=== PATIENT | male | born 1955 | race Caucasian/White ===

== ENCOUNTER 2016-08-22 11:28 | Observation (INO) | payer MEDICARE ==
--- NOTE | ~2016-08-22 | DS ---
Unit #: [id number] #: [id number] Patient: MEI GARCIA SR [id number] [address] [address] [id number] MR#: [id number] NAME: MEI GARCIA SR ROOM: [facility] Age: 61 Sex: M Admission Date: 08/22/2016 : 1955 Discharge Date: 08/23/2016 Attending Physician: Gabi Shankar M.D. Primary Care Physician: Burton Horan, Molding Sander DISCHARGE SUMMARY PRINCIPAL DIAGNOSES 1. Right lower lobe aspiration pneumonia. 2. Mild chronic obstructive pulmonary disease exacerbation. 3. History of tonsillar cancer, status post treatment and facial reconstruction. 4. Dysphagia, status post PEG tube placement. 5. Gastroesophageal reflux disease. CONSULTANTS None. PROCEDURES 1. Chest x-ray on August 22, 2016 with infiltrate or atelectasis of the right lung base. 2. CT angiogram of the chest on August 22, 2016, with no evidence of PE. A few patchy areas of ground glass opacity, consistent with a small amount of pneumonia in the right lower lobe. CLINICAL HISTORY/HOSPITAL COURSE Mr. Garcia is a very nice 61-year-old male who presented to the emergency department with coughing and wheezing. Please refer to H and P for further details. The patient has remained afebrile and hasn't had any new hypoxic. Chest x-ray revealed right lower lobe infiltrate. The patient was placed in observation for evaluation. The patient was placed on empiric azithromycin and cefepime. He has remained afebrile throughout hospitalization. He has not had any leukocytosis nor has he had any hypoxia. This morning, he states he feels quite a bit better and would like to be discharged. His sputum is growing both Gram-positive rods and Gram-positive cocci. He is at risk for healthcare-associated pneumonia; however, clinically he appears quite well. I am going to discharge him on Augmentin and will follow up sputum culture tomorrow. DISCHARGE CONDITION Stable. DISCHARGE STATUS Discharge to home. DISCHARGE MEDICATIONS 1. Gabapentin 300 mg t.i.d. per PEG tube. 2. Claritin 10 mg daily. 3. Isosource 1.5 tube feeds as he was doing at home. Unit #: [id number] #: [id number] Patient: MEI GARCIA SR 4. Lipitor 20 mg at bedtime. 5. Reglan 5 mg per G-tube four times daily. 6. Protonix per PEG daily. 7. Augmentin suspension, 125/31.25 per 5 mL. The patient will take 35 mL per PEG b.i.d. for another five days. DISCHARGE INSTRUCTIONS Patient will remain NPO and continue with tube feeds with water flushes as he was doing at home previously. He can increase his activity as tolerated. FOLLOWUP The patient will follow up with his primary care provider, Manju Horan, at [facility], [place] in two weeks. Dictated by... Gabi Shankar M.D. MOE/hasmukh TD: 08/23/2016 11:54 JOB #: [id number] DISCHARGE SUMMARY X Gabi Shankar MD X DISCHARGE SUMMARY
--- NOTE | ~2016-08-22 | EKG ---
PATIENT: MEI GARCIA UNIT #: [id number] Ventricular Rate: 83 BPM Atrial Rate: 83 BPM P-R Interval: 152 ms QRS Duration: 84 ms Q-T Interval: 358 ms QTC Calculation(Bezet): 420 ms P [place]: 27 degrees Calculated R [place]: 9 degrees Calculated T [place]: 32 degrees Diagnosis Line: Normal sinus rhythm Diagnosis Line: Normal ECG Diagnosis Line: No previous ECGs available Diagnosis Line: Confirmed by ROZINA JAIMES MD ([id number]) on 08/23/2016 Diagnosis Line: 5:39:20 PM INTERPRETING MD: THEODORE ALAS
--- NOTE | ~2016-08-22 | CR72 ---
[facility] A Service of [facility] RADIOLOGY TEXT RESULTS PATIENT: MEI GARCIA SR LOCATION: [facility] : 53 UNIT #: [id number] AGE: [address]: Werner Sky DO SEX: M ORDER DR: [id number] [facility] [address] [facility] [place], [place] [address] [id number] E MR#: [id number] Acc #: [id number] NAME: MEI GARCIA SR : 1955 SEX: M STUDY DATE/TIME: 08/22/2016 11:23 UNIT: [facility] ROOM: STUDY DESCRIPTION: CR Chest Single View Portable Attending Physician: Werner Sky D.O. Ordering Physician: Werner Sky D.O. Primary Care Physician: Burton Horan Aprn MEDICAL IMAGING REPORT This report is preliminary unless electronic signature is present EXAM AP portable chest 08/22/2016. HISTORY 61-year-old male in the ED complaining of 2-day history of cough, wheezing and shortness of air. TECHNIQUE AP portable chest x-ray. FINDINGS The exam shows mild infiltrate or atelectasis in the right lung base. Lungs otherwise clear. Heart size and pulmonary vascularity are normal. Tracheostomy tube and gastrostomy tube are visible. Surgical clips at the base of the neck on the left and in the left axilla. IMPRESSION Mild right lung base infiltrate. Dictated by... Lobo Velez M.D. THIS IS AN ELECTRONICALLY VERIFIED REPORT Lobo Velez M.D. at 08/22/2016 4:12 PM ALEJANDRAW/bora TD: 08/22/2016 14:01 JOB #: [id number] MEDICAL IMAGING REPORT COPY
--- NOTE | ~2016-08-22 | HP ---
Unit #: [id number] #: [id number] Patient: EMI GARCIA SR [id number] [address] [place], [place] [address] [id number] E MR#: [id number] NAME: MEI GARCIA ROOM: Age: 61 Sex: M Admission Date: 08/22/2016 : 1955 Attending Physician: Werner Sky D.O. Primary Care Physician: Burton Horan Aprn HISTORY AND PHYSICAL CHIEF COMPLAINT Coughing and wheezing. HISTORY OF PRESENT ILLNESS The patient is a 61-year-old male with history of a tonsillar cancer status post radiation therapy and reconstructive surgery on the left side of the face, status post tracheostomy on July 02 of this year. The patient also had a PEG tube for the feeding. The patient presented to the emergency room complaining of the coughing and wheezing for the past two days. The patient is at home with his and stated the patient was coughing up yellowish sputum. The patient denies any fever, chills, nausea or vomiting. The patient had a chest x-ray that showed a mild right lung base infiltrate. The patient is being admitted for the above reasons. The patient denies chest pain, dizziness, abdominal pain. PAST MEDICAL HISTORY History of a heartburn, arthritis, bronchitis and the tonsillar/mouth carcinoma. PAST SURGICAL HISTORY History of abdominal hernia surgery, left thumb surgery, throat (1) tonsillar left cancer, c-spine surgery and tracheostomy and PEG tube placement. SOCIAL HISTORY Denies history of smoking, alcohol or any illicit drug abuse. HOME MEDICATIONS Lipitor, Reglan, Claritin, Isosource, gabapentin. FAMILY HISTORY Reviewed and none. ALLERGIES No known drug allergies. REVIEW OF SYMPTOMS Fourteen-point review of symptoms performed and only pertinent positive findings as described above, remaining are negative. PHYSICAL EXAMINATION GENERAL APPEARANCE: On examination the patient is sitting on a bed not in acute distress. Unit #: [id number] #: [id number] Patient: MEI GARCIA SR VITAL SIGNS: Temperature 97.6, pulse 90, respiratory rate 17, blood pressure 126/94, sating 96% at room air. HEENT: Head atraumatic, normocephalic. Pupils equal, round and reacting to light and accommodation. Extraocular movements are intact. Dry mucous membranes. NECK: Status post tracheostomy with a cuff. LUNGS: Decreased air entry at the bases. Positive for rhonchi. HEART: Regular rate and rhythm. ABDOMEN: Soft. Positive bowel sounds. Positive for PEG tube placemen and no drainage, no leakage. EXTREMITIES: No cyanosis. No clubbing. No pedal edema. NEUROLOGIC: Alert, awake, oriented. No gross focal motor deficit. DIAGNOSTIC STUDIES IMAGING: Chest x-ray shows mild right lung base infiltrate. CT of the chest shows the small pneumonia at the base. LABORATORY DATA: Glucose 110, BUN 23, creatinine 0.6, sodium 139, potassium 4.8, chloride 103, bicarb 27, calcium 8.9, total protein 6.8, albumin 3.2, AST 19, ALT 12, alkaline phosphatase 72, BNP is 15, INR is 0.9, troponin less than 0.5, WBC 7.8, hemoglobin 10.6, hematocrit 33.9, platelets 210. Flu screen is negative. ASSESSMENT 1. The mild right-sided pneumonia. 2. History of a tracheostomy and percutaneous endoscopic gastrostomy tube. 3. History of a tonsillar cancer. PLAN 1. Plan is to admit the patient to observation with telemetry. 2. Continue with IV antibiotics with cefepime and Zithromax. 3. Continue with DuoNebs. 4. Check the sputum cultures. 5. Repeat the labs again in the morning. 6. Further recommendations will follow. Dictated by Janine Rosenberg/jamal TD: 08/22/2016 15:47 JOB #: [id number] Unit #: [id number] #: [id number] Patient: MEI GARCIA HISTORY AND PHYSICAL X X HISTORY AND PHYSICAL
--- NOTE | ~2016-08-22 | CT16 ---
[facility] A Service of [facility] RADIOLOGY TEXT RESULTS PATIENT: MEI GARCIA SR LOCATION: [facility] 306-01 : 53 UNIT #: [id number] AGE: [address]: ELSA MCCAIN MD SEX: M ORDER DR: [id number] [facility] [address] [facility]. [place], [place] [address] [id number] E MR#: [id number] Acc #: [id number] NAME: MEI GARCIA SR : 1955 SEX: M STUDY DATE/TIME: 08/22/2016 12:59 UNIT: [facility] ROOM: STUDY DESCRIPTION: CT Angio Chest for PE Attending Physician: Werner Sky D.O. Ordering Physician: Werner Sky D.O. Primary Care Physician: Burton Horan Aprn MEDICAL IMAGING REPORT This report is preliminary unless electronic signature is present EXAM CTA chest, PE protocol. DATE OF EXAM 08/22/2016 INDICATIONS Cough, wheezing, shortness of air for the past several days. Elevated D-dimer level. PROCEDURE Contrast-enhanced CTA of the chest with attention on opacification of the pulmonary arteries. Coronal 3-D MIP and sagittal reformatted images are reconstructed and submitted. COMPARISON None. TECHNIQUE NOTE: This CT exam was performed with one or more of the following radiation dose reduction techniques: automatic exposure control, adjustment of mA and/or kV according to patient size, and iterative reconstruction. FINDINGS No evidence for pulmonary embolus. No evidence for acute aortic injury. Tracheostomy tube is in place. No adenopathy. There are a few areas of patchy ground-glass opacity included in the posterior right upper lobe, posterior/superior segment of the left lower lobe. There is no dense confluent consolidation. No pleural fluid or pneumothorax. No acute findings in the included upper abdomen. Bilateral nonobstructing renal calculi. There is a gastrostomy tube in place. No aggressive-appearing bone lesion. [facility] A Service [facility] RADIOLOGY TEXT RESULTS PATIENT: MEI GARCIA SR LOCATION: [facility] 306-01 : 53 UNIT #: [id number] AGE: [address]: ELSA MCCAIN MD SEX: M ORDER DR: IMPRESSION 1. No evidence for pulmonary embolus. 2. A few patchy areas of ground-glass opacity as detailed above are most in keeping with small areas of pneumonia. There is no dense confluent consolidation. Dictated by... Perico Alvarez M.D. THIS IS AN ELECTRONICALLY VERIFIED REPORT Perico Alvarez M.D. at 08/23/2016 6:57 AM MACKENZIE/danny TD: 08/22/2016 15:54 JOB #: [id number] MEDICAL IMAGING REPORT COPY
[~2016-08-22 11:28] MED LIST: ALBUTEROL17 GM INH; BACLOFEN10 MG PO; CLARITIN10 M2 PO; CLEOCIN HCL300 M1; FISH OIL 1,2001 EAC4 PO; FLOMAX0.4 M1 PO; LIPITOR PO; LORTAB 5/500 TA1 TA1 PO; LORTAB 5/500 TA1 TA2 PO; MOTRIN600 MG PO; PROTONIX PO
[2016-08-22 11:29] LABS: BASOPHIL# 0.1 X10e3 (0-0.3); BASOPHIL% 0.9 % (0-2.5); EOSINOPHIL# 0.5 X10e3 (0-0.7); EOSINOPHIL% 6.7 % (0.0-7.0); HEMATOCRIT 33.9 % (38.0-50.0); HEMOGLOBIN 10.6 gm/dL (13.0-16.0); LYMPHOCYTE# 1.3 X10e3 (1.0-3.5); LYMPHOCYTE% 16.4 % (17.0-45.0); MEAN CELL VOLUME 83.9 FL (83-96); MEAN CORPUSCULAR HEMOGLOBIN 26.2 PG (28-34); MEAN CORPUSCULAR HGB CONC 31.2 g/dL (30-36); MEAN PLATELET VOLUME 10.8 FL (6.5-11.5); MONOCYTE# 0.6 X10e3 (0-1.0); MONOCYTE% 7.6 % (3.0-12.0); NEUTROPHIL# 5.3 X10e3 (1.5-7.1); NEUTROPHIL% 68.4 % (40-75); PLATELET COUNT 210 X10e3 (140-420); RED BLOOD COUNT 4.03 X10e (3.90-5.60); RED CELL DISTRIBUTION WIDTH 15.4 % (11.0-15.5); WHITE BLOOD COUNT 7.8 X10e3 (4.0-10.5)
[2016-08-22 11:32] LABS: DIFF IND NO
[2016-08-22 11:46] LABS: INR 0.9; PARTIAL THROMBOPLASTIN TIME 25.9 SECONDS (23.5-31.3); PROTHROMBIN TIME (PATIENT) 9.9 SECONDS (9.6-11.5)
[2016-08-22 11:57] LABS: ALBUMIN SERUM 3.2 g/dL (3.5-5.0); ALKALINE PHOSPHATASE 72 U/L (32-92); ALT (SGPT) 12 U/L (10-40); AST (SGOT) 19 U/L (10-42); BILIRUBIN,TOTAL 0.5 mg/dL (0.2-2.0); BLOOD UREA NITROGEN 23 mg/dL (9-23); BUN/CREATININE RATIO 38.33; CALCIUM SERUM 8.9 mg/dL (8.4-10.2); CARBON DIOXIDE 27 mmol/L (22-31); CHLORIDE 103 mmol/L (100-111); CREATININE SERUM 0.6 mg/dL (0.6-1.4); GLOM FILT RATE Estimated ABOVE60 mL/min (>60); GLUCOSE FASTING 110 mg/dL (70-110); POTASSIUM 4.8 mmol/L (3.5-5.1); PROTEIN TOTAL SERUM 6.8 g/dL (6.0-8.3); SODIUM 139 mmol/L (135-145)
[2016-08-22 11:58] LABS: BILIRUBIN, DIRECT <0.1 mg/dL (0.0-0.2); BILIRUBIN,INDIRECT 0.4 mg/dL (0.0-0.9)
[2016-08-22 12:00] LABS: POC - CKMB <1.0 ng/mL (0.0-7.9); POC - TROPONIN <0.05 ng/mL (<=0.05)
[2016-08-22 12:09] LABS: INFLUENZA A NEG (NEG); INFLUENZA B NEG (NEG)
[2016-08-22] MEDS ORDERED: LIPITOR20 MG GT (14:15)
[2016-08-22] MEDS ORDERED: CLARITIN10 M3 GT (14:16)
[2016-08-22] MEDS ORDERED: REGLAN5 MG GT (14:16)
[2016-08-22] MEDS ORDERED: ISOSOURCE 1.5250 ML GT (14:24)
[2016-08-22] MEDS ORDERED: GABAPENTIN300 MG GT (14:24)
[2016-08-22] MEDS ORDERED: GABAPENTIN300 M2 GT (14:25)
[2016-08-22 14:30] LABS: POC - CKMB <1.0 ng/mL (0.0-7.9); POC - TROPONIN <0.05 ng/mL (<=0.05)
[2016-08-22] MEDS ORDERED: PROTONIX20 MG PEG (17:58)
[2016-08-23 06:43] LABS: BASOPHIL% 0.1 % (0-2.5); HEMATOCRIT 30.9 % (38.0-50.0); HEMOGLOBIN 9.8 gm/dL (13.0-16.0); LYMPHOCYTE# 0.8 X10e3 (1.0-3.5); LYMPHOCYTE% 10.6 % (17.0-45.0); MEAN CELL VOLUME 83.3 FL (83-96); MEAN CORPUSCULAR HEMOGLOBIN 26.5 PG (28-34); MEAN CORPUSCULAR HGB CONC 31.8 g/dL (30-36); MONOCYTE# 0.4 X10e3 (0-1.0); MONOCYTE% 5.8 % (3.0-12.0); NEUTROPHIL# 6.1 X10e3 (1.5-7.1); NEUTROPHIL% 83.5 % (40-75); PLATELET COUNT 217 X10e3 (140-420); RED BLOOD COUNT 3.71 X10e (3.90-5.60); RED CELL DISTRIBUTION WIDTH 15.3 % (11.0-15.5); WHITE BLOOD COUNT 7.2 X10e3 (4.0-10.5)
[2016-08-23 06:48] LABS: DIFF IND NO
[2016-08-23 07:10] LABS: BLOOD UREA NITROGEN 22 mg/dL (9-23); BUN/CREATININE RATIO 36.66; CALCIUM SERUM 8.6 mg/dL (8.4-10.2); CARBON DIOXIDE 26 mmol/L (22-31); CHLORIDE 109 mmol/L (100-111); CREATININE SERUM 0.6 mg/dL (0.6-1.4); GLOM FILT RATE Estimated ABOVE60 mL/min (>60); GLUCOSE FASTING 135 mg/dL (70-110); POTASSIUM 3.9 mmol/L (3.5-5.1); SODIUM 137 mmol/L (135-145)
[2016-08-23] MEDS ORDERED: AUGMENTIN 125-375 ML PO (12:04)
== END 2016-08-23 13:22 | disposition home or self-care (01) ==
LOC: CED 11:28 → C3A PCU 15:10
PROVIDERS: Emergency Medicine; Internal Medicine
DX: J69.0 Pneumonitis due to inhalation of food and vomit (principal); J44.1 Chronic obstructive pulmonary disease with (acute) exacerbation; Z85.818 Personal history of malignant neoplasm of other sites of lip, oral cavity, and pharynx; K21.9 Gastro-esophageal reflux disease without esophagitis; R13.10 Dysphagia, unspecified; Z93.1 Gastrostomy status
CPT/HCPCS: 36415; 71010; 71275; 80048; 80076; 82553; 83880; 84484; 85025; 85379; 85610; 85730; 87040; 87070; 87205; 87804; 93005; 94640; 94760; 96365; 96366; 96367; 96372; 96374; 96375; 99285; G0378; J0456; J0692; J1650; J2543; J2930; J3260; J3370; Q9967